=== PATIENT | female | born 2000 | race Caucasian/White ===

== ENCOUNTER 2023-04-21 11:38 | Emergency (ER) | payer MEDICAID ==
[2023-04-21 12:49] LABS: BASOPHILS ABSOLUTE AUTO 0.03 K/uL (0.00-0.10); BASOPHILS PERCENT AUTO 0.3 % (0.1-1.3); EOSINOPHILS PERCENT AUTO 2.6 % (0.0-5.4); HEMATOCRIT 34.5 % (34.3-46.0); HEMOGLOBIN 11.7 g/dL (11.2-15.5); IMMATURE GRAN ABSOLUTE AUTO 0.09 K/uL (0.00-0.23); IMMATURE GRAN PERCENT AUTO 0.8 % (0.0-0.7); LYMPHOCYTES ABSOLUTE AUTO 1.63 K/uL (0.8-3.3); MEAN CORPUSCULAR HEMOGLOBIN 29.8 pg (31.6-35.5); MEAN CORPUSCULAR HGB CONC 33.9 g/dL (31.6-35.5); MONOCYTES ABSOLUTE AUTO 0.86 K/uL (0.20-0.90); MONOCYTES PERCENT AUTO 7.4 % (3.3-12.6); NEUTROPHILS ABSOLUTE AUTO 8.74 K/uL (1.0-7.6); NEUTROPHILS PERCENT AUTO 74.9 % (40.0-78.1); PLATELET COUNT,PLT 227 K/uL (130-375); RED BLOOD CELL COUNT 3.92 M/uL (3.77-5.24); WHITE BLOOD CELL COUNT,WBC 11.7 K/uL (3.2-11.0)
[2023-04-21 13:30] LABS: CALCIUM 8.5 mg/dL (8.5-10.1); CREATININE 0.6 mg/dL (0.6-1.0); EST CRCL DRUG DOSING (CG) 143.02 mL/min; POTASSIUM,K 3.7 mmol/L (3.6-5.2)
[2023-04-21 13:32] LABS: MAGNESIUM 1.8 mg/dL (1.8-2.4); TSH ULTRASENSITIVE 1.411 uIU/mL (0.358-3.740)
[2023-04-21 13:33] LABS: ANION GAP 15.7 mmol/L (5.0-14.0)
== END 2023-04-21 14:13 | disposition home or self-care (01) ==
LOC: JP.ED 11:38
DX: O99.413 Diseases of the circulatory system complicating pregnancy, third trimester (principal); O99.333 Smoking (tobacco) complicating pregnancy, third trimester; Z88.0 Allergy status to penicillin; Z79.899 Other long term (current) drug therapy; Z3A.29 29 weeks gestation of pregnancy
CPT/HCPCS: 36415; 80048; 83735; 84443; 84484; 85025; 93005; 93010; 99283; 99285

== ENCOUNTER 2025-04-03 06:23 | Day surgery (SDC) | payer MEDICAID ==
[2025-04-03] MEDS ORDERED: Lactated Ringers 1,000 ML IV SCH (06:30)
[2025-04-03 06:43] LABS: PLATELET COUNT,PLT 308.0 K/uL (130-375); RED BLOOD CELL COUNT 4.34 M/uL (3.77-5.24); WHITE BLOOD CELL COUNT,WBC 7.7 K/uL (3.2-11.0)
[2025-04-03 06:59] LABS: BLOOD UREA NITROGEN,BUN 7 mg/dL (7-18); CARBON DIOXIDE,CO2 27 mmol/L (21-32); CHLORIDE,CL 105 mmol/L (100-108); CREATININE 0.8 mg/dL (0.6-1.0); ESTIMATED GFR 105 mL/min (>60); GLUCOSE RANDOM 86 mg/dL (74-106); POTASSIUM,K 3.9 mmol/L (3.6-5.2); SODIUM,NA 140 mmol/L (140-148)
[2025-04-03] MEDS: Indocyanine Green 25 MG SDV IV ONE (07:05)
[2025-04-03] MEDS ORDERED: fentaNYL 250 MCG/5 ML SDV ONE (07:12)
[2025-04-03] MEDS ORDERED: Succinylcholine 200 MG/10 ML MDV ONE (07:14)
[2025-04-03] MEDS ORDERED: Propofol 200 MG/20 ML SDV ONE (07:14)
[2025-04-03] MEDS ORDERED: Dexamethasone 4 MG/ML SDV ONE (07:14)
[2025-04-03] MEDS ORDERED: Glycopyrrolate 0.2 MG/ML 5 ML MDV ONE (07:14)
[2025-04-03] MEDS ORDERED: Ondansetron 4 MG/2 ML SDV ONE (07:14)
[2025-04-03] MEDS: Clindamycin in 0.9 % Sod Chlor 600 MG in Premix Bag 1 BAG IV ONE (08:04)
[2025-04-03] MEDS: metroNIDAZOLE/Normal Saline 500 MG in Premix Bag 1 BAG IV ONE (08:13)
[2025-04-03] MEDS ORDERED: fentaNYL 100 MCG/2 ML SDV ONE ×2 (08:38→08:46)
[2025-04-03] MEDS: Ondansetron 4 MG/2 ML SDV IVPUSH PRN (10:04)
[2025-04-03] MEDS: Acetaminophen/HYDROcodone 325-5 MG Tab PO PRN (10:09)
== END 2025-04-03 11:39 | disposition home or self-care (01) ==
LOC: JP.SDS 06:23
PROVIDERS: ATTEND Surgery
DX: K80.10 Calculus of gallbladder with chronic cholecystitis without obstruction (principal)
CPT/HCPCS: 00790; 36415; 47563; 80048; 84703; 85027; 88304; A9270; J0169; J0330; J0665; J0737; J1100; J1596; J1836; J2405; J2704; J2710; J2795; J3010; J7030; J3490